=== PATIENT | female | born 1960 | race Two or more races ===

== ENCOUNTER → 2016-11-16 | Outpatient (CLI) | payer OTHER ==
[~2016-11-16] MED LIST: AMIT50TA PO; CHOLECALCIFEROL PO; CYANOCOBALAMIN PO; CYCL-259 PO; DULO60CA55 PO; GABA-827 PO; HYDR-3307 PO; HYDR25CA94 PO; LEVO75TA5 PO; LISI40TA PO; METF850T2 PO; METH500T97 PO; METO50TA82 PO; MORP30TA PO
== END | disposition home or self-care (01) ==
LOC: CFH 15:08
PROVIDERS: ATTEND Family Medicine
DX: Z12.31 Encounter for screening mammogram for malignant neoplasm of breast (principal)
CPT/HCPCS: G0202